=== PATIENT | male | born 1985 | race Caucasian/White ===

== ENCOUNTER 2016-08-12 11:15 | Observation (INO) ==
[2016-08-12 13:33] LABS: Basophils % 0.4 %; Eosinophils # 0.1 K/mcL (0.0-0.6); Eosinophils % 1.1 %; Hemoglobin 13.7 g/dL (12.9-16.9); Immature Granulocytes % 0.3 % (0-4); Lymphocytes # 1.5 K/mcL (0.6-4.6); Mean Corpuscular HGB Conc 33.4 g/dL (31.6-35.5); Mean Corpuscular Hemoglobin 28.4 pg (28.0-33.3); Mean Corpuscular Volume 85.1 fL (83.0-100.0); Mean Platelet Volume 9.7 fL (9.4-12.4); Monocytes # 0.7 K/mcL (0.0-1.3); Monocytes % 7.3 %; Neutrophils # 7.6 K/mcL (1.6-8.9); Platelet Count 284 K/mcL (140-400); Red Blood Count 4.82 M/mcL (4.19-5.50); Red Cell Distribution Width 12.7 % (11.5-14.5); Segmented Neutrophils % 75.9 %
[2016-08-12 13:46] LABS: Alanine Aminotransferase 14 Units/L (0-55); Albumin/Globulin Ratio 1.4 (1.1-2.2); Alkaline Phosphatase 94 Units/L (38-126); Aspartate Amino Transferase 21 Units/L (5-34); BUN/Creatinine Ratio 12 (6-26); Bilirubin,Total 0.5 mg/dL (0.2-1.2); Blood Urea Nitrogen 13 mg/dL (8-26); Carbon Dioxide 26 mEq/L (19-29); Chloride 109 mEq/L (98-109); Globulin 2.8 g/dL (2.4-3.5); Glucose 87 mg/dL (70-99); Osmolality,Calculated 289 (280-300); Potassium 4.4 mEq/L (3.5-4.5); Sodium 140 mEq/L (136-145); Total Protein 6.8 g/dL (6.0-8.3); eGFR For African Americans > 60 (> 60); eGFR For Non-African Americans > 60 (> 60)
[2016-08-12] MEDS ORDERED: Ondansetron 4 MG/2 ML VIAL IV ONE (13:46)
[2016-08-12] MEDS ORDERED: *HR* HYDROmorphone (PF) 1 MG/ML SYRINGE IV ONE (13:46)
--- NOTE | 2016-08-12 13:51 | Emergency Department Note ---
Disposition Clinical Impression: Cholecystitis Disposition: Admitted As Inpatient Referrals: NO,PCP [Primary Care Provider] - Forms: Work/School Release, ED Satisfaction Letter Abdominal Pain HPI - General Chief Complaint: ED Abdominal Pain Stated Complaint: abd pain Time Seen by Provider: 08/12/16 12:59 Source: patient, family Mode of arrival: ambulatory Limitations: no limitations Nursing Notes Reviewed: Yes Vital Signs Reviewed: Yes - History of Present Illness Pt Subjective Complaint: abdominal pain Onset (ago): day(s) (3) Location: RUQ Pain Scale: 9 Quality: stabbing Radiation: none Migration to: no migration Improves with: nothing Worsens with: nothing Associated symptoms: Reports: nausea, anorexia Treatments prior to arrival: OTC medications, prescription analgesics - Related Data Previous Rx's Medication Instructions Recorded Dicyclomine [Bentyl] 20 mg PO QID PRN #30 capsule 08/11/16 HYDROcodone/Acet 5/325 mg [[place] 1 tab PO Q6H PRN #5 tab 08/11/16 5-325 mg] Allergies Allergy/AdvReac Type Severity Reaction Status Date / Time No Known Allergies Allergy Verified 08/12/16 11:45 All systems ED: reviewed and negative except as stated. Constitutional: Denies: fever, chills, weakness Gastrointestinal: Reports: abdominal pain, nausea Abdominal Pain PMH - Past Medical History Medical history: Reports: kidney stones, seizures Male Surgical History: Reports: orthopedic, other Psychiatric history: Reports: no psych history - Social History Smoking status: Never smoker Alcohol use: Reports: none Drug use: Reports: none Physical Exam - General Limitations: no limitations General appearance: alert, in no apparent distress - Head Head exam: atraumatic, normocephalic, normal inspection - Eye Eye exam: Present: normal appearance, PERRL, EOMI - Expanded Eye Exam Pupils: Left: reactive - ENT ENT exam: normal exam, normal oropharynx, mucous membranes moist - Expanded ENT Exam External ear exam: Present: normal external inspection Mouth exam: Present: normal external inspection Teeth exam: Present: normal inspection Throat exam: Present: normal inspection - Neck Neck exam: Present: normal inspection, full ROM, trachea midline - Chest Chest inspection: Present: normal inspection, symmetric chest wall rise - Respiratory Respiratory exam: Present: normal lung sounds bilaterally - Cardiovascular Cardiovascular exam: Present: regular rate, normal rhythm, normal heart sounds - Abdominal Exam Abdominal exam: Present: soft, tenderness, guarding, normal bowel sounds. Absent: rebound Abdominal tenderness: Present: RUQ, moderate - Extremities Exam Extremities exam: Present: normal inspection, full ROM. Absent: tenderness, pedal edema - Expanded Upper Extremity Exam Shoulder exam: Present: normal inspection, full ROM Arm exam: Present: normal inspection, full ROM Elbow exam: Present: normal inspection, full ROM Forearm/Wrist exam: Present: normal inspection, full ROM Hand exam: Present: normal inspection, full ROM Vascular exam: Normal: capillary refill, radial pulse - Expanded Lower Extremity Exam Hip/Pelvis exam: Present: normal inspection, full ROM Upper leg exam: Present: normal inspection, full ROM Knee exam: Present: normal inspection, full ROM Lower leg exam: Present: normal inspection, full ROM Ankle exam: Present: normal inspection, full ROM Foot/toe exam: Present: normal inspection, full ROM Neurovascular/Tendon exam: Absent: motor deficit, sensory deficit, tendon deficit - Back Exam Back exam: Present: normal inspection, full ROM. Absent: tenderness - Neurological Exam Neurological exam: Present: alert, oriented X3 - Expanded Neurological Exam Patient oriented to: Present: person, place, time Coma Scale Eye Opening: Spontaneous Coma Scale Motor Response: Obeys Commands Coma Scale Verbal Response: Oriented Coma Scale Total: 15 - Psychiatric Psychiatric exam: Present: normal affect, normal mood - Skin Skin exam: Present: warm, dry, intact, normal color Course Vital Signs Temperature 97.6 F 08/12/16 11:45 Pulse Rate 76 08/12/16 11:45 Respiratory Rate 18 08/12/16 11:45 Blood Pressure 110/63 08/12/16 11:45 O2 Sat by Pulse Oximetry 96 08/12/16 11:45 Temperature 97.6 F 08/12/16 11:45 Pulse Rate 76 08/12/16 11:45 Respiratory Rate 18 08/12/16 11:45 Blood Pressure 110/63 08/12/16 11:45 O2 Sat by Pulse Oximetry 96 08/12/16 11:45 Oxygen Delivery Oxygen Delivery Room Air Abdominal Pain - [facility] Narrative Medical decision making narrative: Dr. Betancur will admit to her service - Differential Diagnosis Differential Diagnosis: Likely: abdominal pain non-specific, acute appendicitis , constipation, colonic obstruction, diverticulitis, diverticulosis, gastroenteritis, hernia, pancreatitis, small bowel obstruction - Medical Records Medical records reviewed: Yes I reviewed the patient's medical records. - Lab Data Lab results reviewed: Yes I reviewed the patient's lab results. Result diagrams: 08/12/16 13:26 08/12/16 13:26 Lab Results 08/12/16 08/12/16 Range/Units 13:26 13:26 WBC 10.1 (4.3-11.1) K/mcL RBC 4.82 (4.19-5.50) M/mcL Hgb 13.7 (12.9-16.9) g/dL Hct 41.0 (37.5-50.1) % MCV 85.1 (83.0-100.0) fL MCH 28.4 (28.0-33.3) pg MCHC 33.4 (31.6-35.5) g/dL RDW 12.7 (11.5-14.5) % Plt Count 284 (140-400) K/mcL MPV 9.7 (9.4-12.4) fL Immature Gran % 0.3 (0-4) % Seg Neutrophils % 75.9 % Lymphocytes % 15.0 % Monocytes % 7.3 % Eosinophils % 1.1 % Basophils % 0.4 % Neutrophils # 7.6 (1.6-8.9) K/mcL Lymphocytes # 1.5 (0.6-4.6) K/mcL Monocytes # 0.7 (0.0-1.3) K/mcL Eosinophils # 0.1 (0.0-0.6) K/mcL Basophils # 0.0 (0.0-0.2) K/mcL Sodium 140 (136-145) mEq/L Potassium 4.4 (3.5-4.5) mEq/L Chloride 109 (98-109) mEq/L Carbon Dioxide 26 (19-29) mEq/L BUN 13 (8-26) mg/dL Creatinine 1.07 (0.72-1.25) mg/dL Est GFR ( Amer) > 60 (> 60) Est GFR (Non-Af Amer) > 60 (> 60) BUN/Creatinine Ratio 12 (6-26) Glucose 87 (70-99) mg/dL Calculated Osmolality 289 (280-300) Calcium 9.0 (8.6-10.8) mg/dL Total Bilirubin 0.5 (0.2-1.2) mg/dL AST 21 (5-34) Units/L ALT 14 (0-55) Units/L Alkaline Phosphatase 94 (38-126) Units/L Serum Total Protein 6.8 (6.0-8.3) g/dL Albumin 4.0 (3.5-5.0) g/dL Globulin 2.8 (2.4-3.5) g/dL Albumin/Globulin Ratio 1.4 (1.1-2.2) - Radiology Data Radiology results reviewed: Yes I reviewed the patient's radiology results.
[2016-08-12 14:12] LABS: Bilirubin,Urine Negative (Negative); Blood,Urine Large (Negative); Clarity,Urine Cloudy (Clear); Color,Urine Yellow (Yellow); Glucose,Urine (UA) Normal (Normal); Ketones,Urine Negative (Negative); Leukocyte Esterase,Urine Moderate (Negative); Nitrite,Urine Negative (Negative); Protein,Urine Trace mg/dL (Neg-Trace); Specific Gravity,Urine 1.022 (1.010-1.025); Urobilinogen,Urine Normal (Normal)
[2016-08-12 14:13] LABS: Amphetamine Screen,Urine Negative ng/mL (Cutoff=1000); Barbiturate Screen,Urine Negative ng/mL (Cutoff=200); Benzodiazepines Screen,Urine Negative ng/mL (Cutoff=200); Cannabinoid Screen,Urine Negative ng/mL (Cutoff = 50); Cocaine Screen,Urine Negative ng/mL (Cutoff= 300); Opiate Screen,Urine Positive ng/mL (Cutoff=300); Phencyclidine Screen,Urine Negative ng/mL (Cutoff=25)
[2016-08-12 14:16] LABS: Bacteria,Urine None Seen per hpf (None-Few); Squamous Epithelial Cell,Urine Many per lpf (None-Few)
[2016-08-12 14:33] LABS: Calcium Oxalate Crystals,Urine Present; Mucus,Urine Many (Few)
[2016-08-12 14:35] LABS: WBC,Urine 50-100 per hpf (0-3)
[2016-08-12 14:37] LABS: Amorphous Sediment,Urine Few (Few)
[2016-08-12 15:01] LABS: Hepatitis A Antibody IgM Nonreactive (Nonreactive); Hepatitis B Core IgM Nonreactive (Nonreactive); Hepatitis B Surface Antigen Nonreactive (Nonreactive); Hepatitis C Virus Antibody Nonreactive (Nonreactive)
[2016-08-12] MEDS ORDERED: Ondansetron 4 MG/2 ML VIAL IVP PRN (15:29)
[2016-08-12] MEDS ORDERED: Naloxone 0.4 MG/ML INJ IVP PRN (15:29)
--- NOTE | 2016-08-12 15:38 | General Surg History&Physical ---
<Grisel Escalera Tabby - Last Filed: 08/12/16 15:34> Date of Encounter: 08/12/16 Time of Encounter: 15:34 Assessment and Plan (1) Recurrent biliary colic Current Visit: Yes Status: Acute The assessment and plan as outlined above was discussed with the patient and/or family members who expressed understanding and agreement. All questions were answered. Clear liquid diet NPO after midnight Plan for laparoscopic cholecystectomy with Dr. Betancur 08/13/16 Mefoxin 2GM loss control engineer to OR 08/13 IV fluids Supportive care/pain control Incentive spirometer every 1 hour while awake (2) Cholelithiasis Current Visit: Yes Status: Acute The assessment and plan as outlined above was discussed with the patient and/or family members who expressed understanding and agreement. All questions were answered. Clear liquid diet NPO after midnight Plan for laparoscopic cholecystectomy with Dr. Betancur 08/13/16 Mefoxin 2GM loss control engineer to OR 08/13 IV fluids Supportive care/pain control Incentive spirometer every 1 hour while awake Qualifiers: Cholelithiasis location: gallbladder Cholecystitis presence: without cholecystitis Biliary obstruction: without biliary obstruction Qualified Code(s): K80.20 - Calculus of gallbladder without cholecystitis without obstruction (3) DVT prophylaxis Current Visit: Yes Status: Acute The assessment and plan as outlined above was discussed with the patient and/or family members who expressed understanding and agreement. All questions were answered. Ambulate hallways TID with assistance EPCDs loss control engineer to the OR 08/13/16 History of Present Illness Chief complaint: RUQ abdominal pain HPI: Mr. Harrison is a 30 year old male with onset of RUQ and epigastric abdominal pain 2 days ago. He states that he reported to [facility] ED and was treated and released. He reported to [facility] ED and was treated for recurrent biliary colic and ordered for outpatient US and outpatient follow-up in the surgery office. He states that he was feeling better and went for his US this morning. He states that on his was home he had recurrence of the RUQ abdominal pain which was severe and constant. He describes it as a stabbing pain which radiates into his back. He denies any aggrevating or alleviating factors. He has never experience pain like this in the past. He has has associated nausea with no vomiting noted. He admits to constipation and states that his last BM was this morning (small amount). He typically has a bowel movement up to 3 times per day. Denies any fevers or chills. Denies any heartburn symptoms. Denies any shortness of breath of chest pains. Denies any difficulty with urination. We have been asked to see and evaluate the patient for recurrent biliary colic. Past Med Surg Social Fam HX - Past Medical History Source: patient Medical history: kidney stones, seizures (last seizure 2 years ago) Psychiatric history: no psych history - Past Surgical History Surgical History: appendectomy, orthopedic, other (right shoulder, left middle finger ligament repair) - Social History Smoking Status: Never smoker Smokeless Tobacco Status: Yes (1/4 can per day) Alcohol use: none Drug use: none Current living situation: Home - Independent Activity Level: Independent ambulation Medications and Allergies Dicyclomine [Bentyl] 20 mg PO QID PRN #30 capsule 08/11/16 [Rx] HYDROcodone/Acet 5/325 mg [[place] 5-325 mg] 1 tab PO Q6H PRN #5 tab 08/11/16 [Rx] Allergies No Known Allergies Allergy (Verified 08/12/16 11:45) Review of Systems All systems PM: reviewed and no additional remarkable complaints except as stated (in the HPI) All systems PM: A 10-system review of systems was performed and is negative for pertinent findings except as documented above in the HPI. General Surgery Exam Initial Vital Signs Temp Pulse Resp BP Pulse Ox 97.6 F 76 18 110/63 96 08/12/16 11:45 08/12/16 11:45 08/12/16 11:45 08/12/16 11:45 08/12/16 11:45 - General physical appearance well developed, well nourished, no distress, moderate pain - Eyes normal ocular movement - ENT normal mucosa, atraumatic, normocephalic - Neck trachea midline - Respiratory normal respiratory effort, clear to auscultation - Cardiovascular Cardiovascular exam: Present: RRR, 15, 16 - Abdomen Abdomen general surgery: Present: bowel sounds present, soft, tender Abdominal Tenderness: Present: epigastic, RUQ - Integumentary Integumentary general surgery: Present: warm and dry - Neurologic Present: CN 2-12 grossly intact - Psychiatric Psychiatric general surgery: Present: appropriate, oriented to person, oriented to place, oriented to time, speech is normal, memory intact Results - Labs 08/12/16 13:26 08/12/16 13:26 Abnormal lab results Urine Clarity Cloudy (Clear) A 08/12/16 13:57 Urine Blood Large (Negative) H 08/12/16 13:57 Ur Leukocyte Esterase Moderate (Negative) H 08/12/16 13:57 Urine Microscopic RBC 5-15 per hpf (0-3) H 08/12/16 13:57 Urine Microscopic WBC 50-100 per hpf (0-3) H 08/12/16 13:57 Ur Squamous Epith Cells Many per lpf (None-Few) H 08/12/16 13:57 Urine Mucus Many (Few) H 08/12/16 13:57 Ur Culture Indicated? YES (NO) A 08/12/16 13:57 Urine Opiates Screen Positive ng/mL (Whatmg=117) H 08/12/16 13:57 All other labs normal. - Imaging US - abdomen: report reviewed - Attending Attestation I examined this patient and my medical decision-making was reviewed with the [employer] SALESPERSON/PA/Advanced Practice Nurse/Resident Physician. I agree with the documented findings, disposition and treatment plan as described except to the extent set forth below. <Carmen Betancur - Last Filed: 08/12/16 16:45> Date of Encounter: 08/12/16 Assessment and Plan (1) DVT prophylaxis Current Visit: Yes Status: Acute The assessment and plan as outlined above was discussed with the patient and/or family members who expressed understanding and agreement. All questions were answered. (2) Recurrent biliary colic Current Visit: Yes Status: Acute The assessment and plan as outlined above was discussed with the patient and/or family members who expressed understanding and agreement. All questions were answered. History of Present Illness HPI: Mr. Harrison is a 30 year old male Review of Systems All systems PM: A 10-system review of systems was performed and is negative for pertinent findings except as documented above in the HPI. General Surgery Exam Initial Vital Signs Temp Pulse Resp BP Pulse Ox 97.6 F 76 18 110/63 96 08/12/16 11:45 08/12/16 11:45 08/12/16 11:45 08/12/16 11:45 08/12/16 11:45 - General physical appearance well developed, well nourished, no distress - Eyes PERRL, normal ocular movement - ENT normal mucosa, atraumatic, normocephalic - Neck trachea midline - Respiratory normal respiratory effort, clear to auscultation - Cardiovascular Cardiovascular exam: Present: RRR, no murmurs/rubs/gallops - Abdomen Abdomen general surgery: Present: bowel sounds present, soft, tender. Absent: distended, guarding, rebound Abdominal Tenderness: Present: epigastic, RUQ - Integumentary Integumentary general surgery: Present: warm and dry, no abnormal pigmentation - Neurologic Present: CN 2-12 grossly intact - Musculoskeletal Present: normal gait, normal posture - Psychiatric Psychiatric general surgery: Present: A&Ox3, speech is normal Results - Labs 08/12/16 13:26 08/12/16 13:26 Short CBC 08/12/16 Range/Units 13:26 WBC 10.1 (4.3-11.1) K/mcL Hgb 13.7 (12.9-16.9) g/dL Hct 41.0 (37.5-50.1) % Plt Count 284 (140-400) K/mcL Neutrophils # 7.6 (1.6-8.9) K/mcL BMP 08/12/16 Range/Units 13:26 Sodium 140 (136-145) mEq/L Potassium 4.4 (3.5-4.5) mEq/L Chloride 109 (98-109) mEq/L Carbon Dioxide 26 (19-29) mEq/L BUN 13 (8-26) mg/dL Creatinine 1.07 (0.72-1.25) mg/dL Glucose 87 (70-99) mg/dL Calcium 9.0 (8.6-10.8) mg/dL Liver Function 08/12/16 Range/Units 13:26 Total Bilirubin 0.5 (0.2-1.2) mg/dL AST 21 (5-34) Units/L ALT 14 (0-55) Units/L Alkaline Phosphatase 94 (38-126) Units/L Albumin 4.0 (3.5-5.0) g/dL Urine 08/12/16 Range/Units 13:57 Urine Color Yellow (Yellow) Urine Clarity Cloudy A (Clear) Urine pH 6.0 (5.0-8.0) pH Units Ur Specific [place] 1.022 (1.010-1.025) Urine Protein Trace (Neg-Trace) mg/dL Urine Glucose (UA) Normal (Normal) mg/dL Vital Signs Temp Pulse Resp BP Pulse Ox 08/12/16 15:07 18 100/59 08/12/16 11:45 97.6 F 76 18 110/63 96 Intake and Output 08/12/16 08/12/16 08/12/16 07:59 15:59 23:59 Other: Weight 86.183 kg Patient Weight 08/12/16 23:59 Weight 86.183 kg - Imaging US - abdomen: report reviewed
[2016-08-12] MEDS: 0.9 % Sodium Chloride 1,000 ML IVC SCH (16:40)
[2016-08-12] MEDS: *HR* HYDROmorphone (PF) 1 MG/ML SYRINGE IVP PRN (20:34)
[2016-08-13] MEDS: *HR* HYDROmorphone (PF) 1 MG/ML SYRINGE IVP PRN ×3 (04:56→09:49)
[2016-08-13] MEDS: 0.9 % Sodium Chloride 1,000 ML IVC SCH (04:57)
[2016-08-13 05:20] LABS: Basophils % 0.6 %; Eosinophils # 0.2 K/mcL (0.0-0.6); Eosinophils % 3.8 %; Hematocrit 38.8 % (37.5-50.1); Hemoglobin 12.9 g/dL (12.9-16.9); Immature Granulocytes % 0.5 % (0-4); Lymphocytes # 1.7 K/mcL (0.6-4.6); Lymphocytes % 26.8 %; Mean Corpuscular HGB Conc 33.2 g/dL (31.6-35.5); Mean Corpuscular Hemoglobin 28.2 pg (28.0-33.3); Mean Corpuscular Volume 84.9 fL (83.0-100.0); Monocytes # 0.6 K/mcL (0.0-1.3); Monocytes % 9.1 %; Neutrophils # 3.7 K/mcL (1.6-8.9); Platelet Count 270 K/mcL (140-400); Red Blood Count 4.57 M/mcL (4.19-5.50); Red Cell Distribution Width 12.7 % (11.5-14.5); Segmented Neutrophils % 59.2 %
[2016-08-13 05:32] LABS: Alanine Aminotransferase 14 Units/L (0-55); Albumin 3.4 g/dL (3.5-5.0); Albumin/Globulin Ratio 1.3 (1.1-2.2); Alkaline Phosphatase 84 Units/L (38-126); Aspartate Amino Transferase 19 Units/L (5-34); BUN/Creatinine Ratio 11 (6-26); Bilirubin,Direct 0.2 mg/dL (0.0-0.5); Bilirubin,Indirect 0.4 mg/dL (0.0-1.2); Bilirubin,Total 0.6 mg/dL (0.2-1.2); Blood Urea Nitrogen 9 mg/dL (8-26); Calcium 8.4 mg/dL (8.6-10.8); Carbon Dioxide 24 mEq/L (19-29); Chloride 109 mEq/L (98-109); Globulin 2.6 g/dL (2.4-3.5); Glucose 83 mg/dL (70-99); Osmolality,Calculated 290 (280-300); Potassium 4.1 mEq/L (3.5-4.5); Sodium 141 mEq/L (136-145); eGFR For African Americans > 60 (> 60); eGFR For Non-African Americans > 60 (> 60)
[2016-08-13] MEDS ORDERED: cefOXitin 2,000 MG in D5% in Water (Mini-Bag+) 100 ML IVPB ONE (07:00)
--- NOTE | 2016-08-13 07:31 | Anesthesia Evaluation PreOp ---
Date of Encounter: 08/13/16 Time of Encounter: 07:30 - Past History Planned Operation: Lap Cholecystectomy Cardiac History: Denies any Significant Hx Pulmonary History: Smoker (Smokeless tobacco) [employer] HISTORY History: Seizures Other Medical History: Denies Any Significant HX Anesthesia History: Past Anesthesia (Rt Shoulder Labral Repair, Appendectomy) Alcohol Use: none Drug use: none Medications and Allergies Dicyclomine [Bentyl] 20 mg PO QID PRN #30 capsule 08/11/16 [Rx] HYDROcodone/Acet 5/325 mg [[place] 5-325 mg] 1 tab PO Q6H PRN #5 tab 08/11/16 [Rx] Allergies No Known Allergies Allergy (Verified 08/12/16 11:45) - Meds/Allergy Pre-op Review Medications Reviewed: Yes Allergies Reviewed: Yes Beta Blockers on Current Med List: No Anesthesia Results - Labs 08/13/16 04:24 08/13/16 04:24 Anesthesia Exam O2 Sat Height 1.68 m Height 1.68 m Weight 85.9 kg Weight 86.183 kg O2 Sat by Pulse Oximetry 94 O2 Sat by Pulse Oximetry 95 O2 Sat by Pulse Oximetry 97 O2 Sat by Pulse Oximetry 98 O2 Sat by Pulse Oximetry 97 O2 Sat by Pulse Oximetry 96 Vital Signs Temp Pulse Resp BP Pulse Ox 97.6 F 76 18 110/63 96 08/12/16 11:45 08/12/16 11:45 08/12/16 11:45 08/12/16 11:45 08/12/16 11:45 Height: 5'6 Weight: 189 lbs NPO (# of Hours): MN - HEENT Pupil (Motor): Pupils equal, EOMI Mallampati: II Teeth: Normal Oral Opening: Greater than 3 - [employer] HISTORY LOC: Oriented [employer] Motor: Normal RUE, Normal LUE, Normal RLE, Normal LLE, Normal Face [employer] HISTORY Sensory: Normal: RUE, LUE, RLE, LLE, Face - Cardiac Rhythm: Regular Murmur: None JVD: No Carotid Bruit: No - Pulmonary Breath Sounds: bilateral Clear Respiratory Effort: Symmetrical Anesthesia Assess/Plan ASA Score: 2 Modified Miguel Angel Scale for Level of Consciousness: Cooperative, oriented, and tranquil Anesthetic Plan: General Monitoring Plan: Standard Monitors Recovery Plan: PACU (Discussed GA, agrees to proceed)
[2016-08-13] MEDS ORDERED: *HR* FentaNYL (PF) 100 MCG/2 ML VIAL ONE (07:35)
[2016-08-13] MEDS ORDERED: *HR* Midazolam HCl 2 MG/2 ML VIAL ONE (07:35)
[2016-08-13] MEDS ORDERED: *HR* Propofol 200 MG/20 ML VIAL IVP ONE (07:35)
[2016-08-13] MEDS ORDERED: Ondansetron 4 MG/2 ML VIAL ONE (07:36)
[2016-08-13] MEDS ORDERED: Lidocaine -MPF 2% 2 ML VIAL ONE (07:36)
[2016-08-13] MEDS ORDERED: Dexamethasone 4 MG/ML VIAL ONE (07:36)
[2016-08-13] MEDS ORDERED: *HR* Succinylcholine 200 MG/10 ML VIAL IVP ONE (07:36)
[2016-08-13] MEDS ORDERED: *HR* Rocuronium Bromide 50 MG/5 ML VIAL ONE (07:36)
[2016-08-13] MEDS ORDERED: Lidocaine -MPF 4% 5 ML AMPUL ONE (07:37)
[2016-08-13] MEDS ORDERED: Famotidine 20 MG/2 ML VIAL ONE (07:41)
[2016-08-13] MEDS ORDERED: Ketorolac 30 MG/ML VIAL ONE (08:57)
[2016-08-13] MEDS ORDERED: Neostigmine Methylsulfate 3 MG/3 ML SYRINGE ONE (09:00)
[2016-08-13] MEDS ORDERED: Pantoprazole 40 MG VIAL IVP SCH (09:00)
--- NOTE | 2016-08-13 09:13 | Operative Note ---
Date of procedure: 08/13/16 Pre-op diagnosis: recurrent biliary colic, cholelithiasis Post-op diagnosis: same Procedure: laparoscopic cholecystectomy Complications: none immediate Anesthesia: GETA, local Local Anesthetics: 0.5% Sensorcaine HCL SubQ (cc) (30) Surgeon: Carmen Betancur Head Resident Other: Carola Cazares Estimated blood loss (cc): 3 Specimen: gallbladder Condition: stable Disposition: PACU Procedure in Detail: The patient was brought into the operating suite and placed supine on the operating table. Sign-in was performed and everyone was in agreement. Anesthesia was induced and patient was endotracheally intubated by anesthesia without incident and they also placed an OG tube. The abdomen was prepped and draped in the usual sterile fashion. A timeout was performed again everyone was in agreement. A supraumbilical incision was made through the skin into the subcutaneous tissue with an 11 blade. Towel clamps were placed on either side of the umbilicus for retraction. S retractors were used to dissect down to the anterior abdominal wall linea alba fascia. A Veress needle was placed through this incision and a water drop test confirmed placement and the abdomen was insufflated. The abdomen was entered with a 5 mm 0 degree laparoscope on a 5 mm X-emerson trocar. The area and entry was visualized was no bleeding and no apparent bowel injury. A 5 mm subxiphoid port was placed under direct visualization after first incising the skin with an 11 blade. A right upper quadrant subcostal position midclavicular line 5 mm port was placed under direct visualization after first incising skin with 11 blade. The laparoscope was placed in this and we exchanged the supraumbilical port for a 12 mm port under direct visualization. The last 5 mm port was placed in the right upper quadrant subcostal position anterior axillary line after first incising the skin with an 11 blade. The patient was placed in steep reverse Trendelenburg left side down position. The dome of the gallbladder was grasped and retracted cephalad. Omental adhesions to the body and infundibulum of the gallbladder were taken down bluntly with the [place]. The infundibulum was grasped and retracted laterally. Using the [place] we dissected out the cystic duct and cystic artery. Three 5 mm hemoclips were placed distally on the cystic duct one proximally and it was transected with curved scissors. The cystic artery was doubly clipped proximally, once distally and transected with curved scissors. The gallbladder was removed off the cystic plate with the Bovie. Any bleeding points were stopped with the Bovie. The gallbladder was placed in a laparoscopic Endo Catch bag and removed via the supraumbilical incision site. The inferior edge of the liver was bluntly retracted cephalad and the cystic plate was copiously irrigated with sterile saline. There was no bleeding or apparent bile leak from the cystic plate and the clips on the cystic artery and duct were intact. All irrigation was suctioned free from the abdomen. All insufflation was suctioned free from the abdomen and the ports removed. The abdominal wall at the supraumbilical incision site was closed with a 0 Vicryl [id number] stitch. 30 mL of 0.5% Marcaine was injected subcutaneously at the 4 port sites. The skin at the three 5 mm port sites were closed with 4-0 Monocryl interrupted subcuticular stitches. The skin at the supraumbilical incision site was closed with a 4-0 Monocryl running subcuticular stitch. Steri -Strips were applied to all wounds. The patient was awoken in the operating suite having tolerated the procedure well and were taken to PACU in stable condition after all lap and ensuring counts were correct at the end of the case.
--- NOTE | 2016-08-13 09:16 | Discharge Summary ---
Date of Encounter: 08/13/16 Time of Encounter: 11:00 - Discharge Diagnosis (1) DVT prophylaxis Priority: Secondary Status: Acute (2) Recurrent biliary colic Priority: Primary Status: Acute - Discharge Medications Prescriptions: OxyCODONE/APAP 5/325 [Percocet 5/325 MG] 1 each PO Q4HR PRN #30 tablet PRN Reason: Pain Docusate [Colace] 100 mg PO BID #30 capsule Home Medications: Dicyclomine [Bentyl] 20 mg PO QID PRN #30 capsule 08/11/16 [Rx] Docusate [Colace] 100 mg PO BID #30 capsule 08/13/16 [Rx] OxyCODONE/APAP 5/325 [Percocet 5/325 MG] 1 each PO Q4HR PRN #30 tablet 08/13/16 [Rx] Allergies/Adverse Reactions: Allergies No Known Allergies Allergy (Verified 08/12/16 11:45) General Surgery Exam Initial Vital Signs Temp Pulse Resp BP Pulse Ox 97.6 F 76 18 110/63 96 08/12/16 11:45 08/12/16 11:45 08/12/16 11:45 08/12/16 11:45 08/12/16 11:45 - General physical appearance well developed, well nourished, no distress - Eyes PERRL, normal ocular movement - ENT normal mucosa, normocephalic - Neck trachea midline - Respiratory normal expansion, clear to auscultation - Cardiovascular Cardiovascular exam: Present: RRR, no murmurs/rubs/gallops - Abdomen Abdomen general surgery: Present: bowel sounds present, soft, tender ( appropriate post op tenderness) - Incision Incision: Present: clean and dry, intact - Integumentary Integumentary general surgery: Present: warm and dry, no abnormal pigmentation - Neurologic Present: CN 2-12 grossly intact - Musculoskeletal Present: normal gait - Psychiatric Psychiatric general surgery: Present: A&Ox3, speech is normal Date of admission: 08/12/16 14:30 Primary care physician: PCP NO Discharging clinician: Carmen Betancur Anticipated date of discharge: 08/13/16 - Patient Status Disposition: Home, Self-Care Condition: Good Functional capacity at discharge: independent ambulation Overall status at discharge: patient is progressing back to baseline - Discharge Instructions Instructions: Laparoscopic Cholecystectomy (DC) Follow Up With: NO,PCP [Primary Care Provider] - Carmen Betancur MD [Partnered Physician] - (in 2 weeks for post-op check) Additional Instructions: ok to shower in 24 hrs, no tub baths for 7 days no driving until off narcotics for 24 hrs and able to react safely ok to ride in car with seatbelt on and ambulate steps no lifting more than 20 lbs for 2 weeks remove steri-strips in 1 week if havent already fallen off - Diet and Activity Activity: increase activity as tolerated Diet: advance to your usual diet - Hospital Course Hospital course: Mr. Harrison is a 30 year old male who had presented to ER's three times in 36 hrs due to his continued and severe RUQ pain. He was found on US to have cholelithiasis vs gallbladder polyps. He was admitted on 08/12/16 for recurrent biliary colic and was taken to the OR for an uncomplicated laparoscopic cholecystecotmy on 08.13.16. He was started on diet, pain controlled with po medication. Ambulating well and having appropriate urinary function. He was discharged home in stable condition. - Time Spent with Patient Total time spent providing and/or coordinating discharge services: Labs on day of discharge: Labs from last 24 hours 08/13/16 08/13/16 08/13/16 05:22 04:24 04:24 WBC 6.3 RBC 4.57 Hgb 12.9 Hct 38.8 MCV 84.9 MCH 28.2 MCHC 33.2 RDW 12.7 Plt Count 270 MPV 10.0 Immature Gran % 0.5 Seg Neutrophils % 59.2 Lymphocytes % 26.8 Monocytes % 9.1 Eosinophils % 3.8 Basophils % 0.6 Neutrophils # 3.7 Lymphocytes # 1.7 Monocytes # 0.6 Eosinophils # 0.2 Basophils # 0.0 Sodium 141 Potassium 4.1 Chloride 109 Carbon Dioxide 24 BUN 9 Creatinine 0.83 Est GFR ( Amer) > 60 Est GFR (Non-Af Amer) > 60 BUN/Creatinine Ratio 11 Glucose 83 POC Glucose 87 Calculated Osmolality 290 Calcium 8.4 L Total Bilirubin 0.6 Direct Bilirubin 0.2 Indirect Bilirubin 0.4 AST 19 ALT 14 Alkaline Phosphatase 84 Serum Total Protein 6.0 Albumin 3.4 L Globulin 2.6 Albumin/Globulin Ratio 1.3
[2016-08-13] MEDS ORDERED: *HR* HYDROmorphone (PF) 1 MG/ML SYRINGE ONE (09:22)
[2016-08-13] MEDS ORDERED: Acetaminophen IV 1,000 MG/100 ML INFUS..BTL IVPB ONE (09:38)
[2016-08-13] MEDS ORDERED: Acetaminophen IV 1,000 MG/100 ML INFUS..BTL ONE (09:40)
--- NOTE | 2016-08-13 10:07 | Anesthesia Evaluation Post Op ---
Date of Encounter: 08/13/16 Time of Encounter: 10:00 - Vital Signs Vital Signs: Vital Signs/O2 Sat/Glucose, Most Current Temp Pulse Resp BP Pulse Ox 08/13/16 10:05 97.9 F 52 16 120/86 94 L 08/13/16 09:55 61 16 115/87 94 L 08/13/16 09:45 97.7 F 56 14 116/81 100 08/13/16 09:35 55 16 95/73 98 08/13/16 09:25 56 16 113/76 94 L 08/13/16 09:20 61 16 123/87 97 08/13/16 09:15 97.5 F L 73 18 137/93 93 L 08/13/16 06:54 97.9 F 60 18 133/76 94 L - Lungs Lungs: Clear Ascult./Percussion - Airway Airway: Non-obstructed - Cardiovascular Regular Rate - Mental Status Mental Status: Alert & Oriented, Answers Appropriately - Pain Pain Scale: 2 - Nausea Vomiting Nausea Vomiting: Not Present - Hydration Hydration: NPO - Discharge PostOp Status: Transfer Patient to floor
[2016-08-13] MEDS ORDERED: Ondansetron 4 MG/2 ML VIAL IVP PRN (10:22)
[2016-08-13] MEDS ORDERED: Naloxone 0.4 MG/ML INJ IVP PRN (10:22)
[2016-08-13] MEDS ORDERED: *HR* HYDROmorphone (PF) 1 MG/ML SYRINGE IVP PRN (10:22)
[2016-08-13] MEDS ORDERED: 0.9 % Sodium Chloride 1,000 ML IVC SCH (10:22)
[2016-08-13] MEDS: *HR* OxyCODONE/APAP 5/325 TABLET PO PRN ×2 (10:38→14:32)
[2016-08-13 14:37] VITALS: BP 112/74
[2016-08-14] MEDS ORDERED: Pantoprazole 40 MG VIAL IVP SCH (09:00)
== END 2016-08-13 14:35 | disposition home or self-care (01) ==
LOC: EMEROO 11:15 → 3ANU 11:15
PROVIDERS: ADMIT Nurse Practitioner Family; ATTEND Surgery